=== PATIENT | female | born 1950 | race Two or more races ===

== ENCOUNTER 2022-12-20 20:51 | Emergency (ER) | payer OTHER ==
[~2022-12-20] VITALS: Ht 165.1 cm; Wt 70.8 kg
[2022-12-20] MEDS ORDERED: HYZAAR 50-12.51 EACH (21:04)
[2022-12-20] MEDS ORDERED: ADULT LOW DOSE81 M1 (21:04)
[2022-12-20] MEDS ORDERED: VITAMIN D310 MC4 (21:05)
== END 2022-12-21 00:15 | disposition home or self-care (01) ==
LOC: ER 20:51
DX: S89.82XA Other specified injuries of left lower leg, initial encounter (principal); W01.0XXA Fall on same level from slipping, tripping and stumbling without subsequent striking against object, initial encounter; Y93.89 Activity, other specified; Y92.012 Bathroom of single-family (private) house as the place of occurrence of the external cause; S99.812A Other specified injuries of left ankle, initial encounter; S69.82XA Other specified injuries of left wrist, hand and finger(s), initial encounter